=== PATIENT | female | born 1945 | race Hispanic/Latino ===

== ENCOUNTER 2016-07-24 15:48 | Emergency (ER) | payer OTHER, BC ==
[~2016-07-24] VITALS: Ht 165.1 cm; Wt 83.0 kg
[~2016-07-24 15:48] MED LIST: CLIMARA1 EAC1 TD; Climara TD; Coumadin Protocol PO; Feosol PO; LISINOPRIL5 MG PO; LOTREL 5/101 CAPSULE PO; Lotrel 5/10 PO; NEXIUM20 MG PO; OxyCONTIN PO; PriLOSEC OTC PO; ROXICODONE5 MG PO; SIMVASTATIN20 MG PO; TRAMADOL HCL50 MG PO; Theragran PO; VITAMIN D50000 UNI4 PO; WOMEN'S DAILY1 EAC1 PO; Zocor PO; oxyCODONE PO
[2016-07-24 16:13] LABS: HEMATOCRIT 37.8 % (36.0-46.0); MCH 30.7 PG (29.0-34.0); MCHC 33.6 G/DL (30.0-36.0); MCV 91.3 FL (83-99); MEAN PLAT.VOLUME 8.7 uM^3 (9.5-12.4); PLATELET COUNT 373 K/uL (156-360); RBC DIS.WIDTH-SD 42.5 % (39-53); RED BLOOD COUNT 4.14 M/uL (3.80-5.20); WHITE BLOOD COUNT 7.3 K/uL (4.1-10.2)
[2016-07-24 16:26] LABS: CHLORIDE 104 mEq/L (99-109); POTASSIUM 3.9 mEq/L (3.7-5.4); SODIUM 139 mEq/L (136-147)
[2016-07-24 16:27] LABS: GLUCOSE 85 mg/dL (70-99)
[2016-07-24 16:29] LABS: ANION GAP 13 MEQ/L (2-14)
[2016-07-24 16:31] LABS: GFR ESTIMATE (CALCULATED) > 59 mL/min/
[2016-07-24 16:32] LABS: UREA NITROGEN (BUN) 9 mg/dL (9-23)
[2016-07-24 16:38] LABS: TROP-I INTERPRETATION NEGATIVE; TROPONIN-I < 0.01 ng/mL (0.0-0.30)
[2016-07-24 18:24] LABS: D-DIMER ELISA 0.65 mg/L FEU (< 0.57)
[2016-07-24 18:50] LABS: TROP-I INTERPRETATION NEGATIVE; TROPONIN-I < 0.01 ng/mL (0.0-0.30)
[2016-07-24] MEDS ORDERED: VALIUM5 MG PO (20:50)
[2016-07-24] MEDS ORDERED: PERCOCET 5/31 TABLET PO (20:53)
[2016-07-24 21:31] VITALS: BP 136/83
== END 2016-07-24 21:32 | disposition home or self-care (01) ==
LOC: EME 15:48
PROVIDERS: Emergency Medicine
DX: R07.89 Other chest pain (principal); I10 Essential (primary) hypertension
CPT/HCPCS: 71020; 71275; 80048; 84484; 85027; 85379; 93005; 99281; 99285; J3010

== ENCOUNTER 2017-06-04 11:18 | Emergency (ER) | payer OTHER, BC ==
[~2017-06-04] VITALS: Ht 165.1 cm; Wt 97.6 kg
[~2017-06-04 11:18] MED LIST changes: +PERCOCET 5/31 TABLET PO; +VALIUM5 MG PO
[2017-06-04 13:19] LABS: HEMATOCRIT 35.1 % (36.0-46.0); MCH 30.9 PG (29.0-34.0); MCHC 32.5 G/DL (30.0-36.0); MCV 95.1 FL (83-99); MEAN PLAT.VOLUME 8.1 uM^3 (9.5-12.4); PLATELET COUNT 322 K/uL (156-360); RED BLOOD COUNT 3.69 M/uL (3.80-5.20); WHITE BLOOD COUNT 7.5 K/uL (4.1-10.2)
[2017-06-04 13:28] LABS: CHLORIDE 104 mEq/L (99-109); POTASSIUM 3.9 mEq/L (3.7-5.4); SODIUM 136 mEq/L (136-147)
[2017-06-04 13:29] LABS: GLUCOSE 104 mg/dL (70-99)
[2017-06-04 13:31] LABS: ANION GAP 6 MEQ/L (2-14)
[2017-06-04 13:33] LABS: GFR ESTIMATE (CALCULATED) > 59 mL/min/
[2017-06-04 13:34] LABS: UREA NITROGEN (BUN) 11 mg/dL (9-23)
[2017-06-04 14:44] VITALS: BP 122/85
== END 2017-06-04 14:44 | disposition home or self-care (01) ==
LOC: EME 11:18
PROVIDERS: Physician Assistant
DX: S70.11XA Contusion of right thigh, initial encounter (principal); E78.5 Hyperlipidemia, unspecified; I10 Essential (primary) hypertension; Z96.651 Presence of right artificial knee joint; Z90.710 Acquired absence of both cervix and uterus; Z88.0 Allergy status to penicillin; Z88.8 Allergy status to other drugs, medicaments and biological substances
CPT/HCPCS: 80048; 85027; 93971; 99281; 99284